=== PATIENT | male | born 1965 | race Caucasian/White ===

== ENCOUNTER 2017-04-05 16:26 | Emergency (ER) | payer SELFPAY ==
[~2017-04-05] VITALS: Ht 175.3 cm; Wt 68.0 kg
[~2017-04-05 16:26] MED LIST: BENZ1 PO; DIVA250T PO; GABA100C4 PO; RISP1 PO
[2017-04-05 16:34] VITALS: BP 118/80; PULSE 86; RESP 15; TEMP 98.7; O2SAT 99
[2017-04-05] MEDS ORDERED: GABA300C5 PO (18:16)
[2017-04-05] MEDS ORDERED: RISP1 PO (18:16)
[2017-04-05] MEDS ORDERED: BENZ0.5T PO (18:16)
--- NOTE | 2017-04-05 18:17 | PD ---
HPI . Anxiety Chief Complaint: Psychiatric Symptoms Time Seen by Provider: 17:19 Travel History International Travel<30 days: No Contact w/Intl Traveler<30days: No Traveled to known affect area: No History of Present Illness HPI A 51-year-old male with a history of psychosis and substance abuse comes in complaining of several psychiatric symptoms. The patient reports that he has been strung out on benzos and really needs to speak to someone. Patient denies any suicidal or homicidal ideation. PFSH Past Medical History Hx Anticoagulant Therapy: No Anxiety: Yes (AND PANIC) Depression: Yes Chemotherapy: No Cerebrovascular Accident: No Diminished Hearing: No Endocrine: No Genitourinary: No Immune Disorder: No Reproductive: No Respiratory: No Immunizations Current: Yes Past Surgical History Appendectomy: Yes Social History Alcohol Use: No Tobacco Use: Yes (10/07 PPD) Substance Use: Yes (few weeks ago did coccaine and meth. ) Allergies-Medications (Allergen,Severity, Reaction): Coded Allergies: Benadryl (Verified Adverse Reaction, Severe, Psychosis, 04/05/17) Reported Meds & Prescriptions Reported Meds & Active Scripts Active Benztropine Mesylate 1 Mg Tab 1 Mg PO BID [address] (Divalproex Sodium) 250 Mg Tab 500 Mg PO Q12HR 15 Days Gabapentin 100 Mg Cap 300 Mg PO TID 15 Days Risperdal (Risperidone) 1 Mg Tab 1 Mg PO DIRECTED 15 Days 2mg PO qAM, 1mg PO qNoon, 2mg PO qHS. Reported Benztropine (Benztropine Mesylate) 0.5 Mg Tab 1 Mg PO HS Gabapentin 300 Mg Cap 300 Mg PO BID Risperdal (Risperidone) 1 Mg Tab 1 Mg PO DAILY Review of Systems Psychiatric: Positive: Anxiety, Depression, Substance Abuse, No: Suicidal Ideations, Homicidal Ideation Physical Exam Narrative GENERAL: Awake and alert and in no acute distress. SKIN: Warm and dry. HEAD: Atraumatic. Normocephalic. EYES: Pupils equal and round. NECK: Trachea midline. CARDIOVASCULAR: Regular rate and rhythm. RESPIRATORY: No accessory muscle use. MUSCULOSKELETAL: No obvious deformities. No edema. NEUROLOGICAL: Awake and alert. No obvious cranial nerve deficits. Motor grossly within normal limits. Normal speech. PSYCHIATRIC: Psychomotor agitation. Affect and mood were flat. Insight and judgment good. Data Data Last Documented VS Vital Signs Date Time Temp Pulse Resp B/P Pulse Ox O2 Delivery O2 Flow Rate FiO2 04/05/17 16:34 98.7 86 15 118/80 99 Orders Complete Blood Count With Diff (04/05/17 17:21) Comprehensive Metabolic Panel (04/05/17 17:21) Psych Screen (04/05/17 17:21) Drug Screen, Random Urine (04/05/17 17:21) Alcohol (Ethanol) (04/05/17 17:21) Labs Laboratory Tests Test 04/05/17 17:40 White Blood Count 7.1 TH/MM3 Red Blood Count 4.81 MIL/MM3 Hemoglobin 14.4 GM/DL Hematocrit 43.4 % Mean Corpuscular Volume 90.3 FL Mean Corpuscular Hemoglobin 29.9 PG Mean Corpuscular Hemoglobin 33.2 % Concent Red Cell Distribution Width 12.5 % Platelet Count 216 TH/MM3 Mean Platelet Volume 8.7 FL Neutrophils (%) (Auto) 71.3 % Lymphocytes (%) (Auto) 18.3 % Monocytes (%) (Auto) 7.3 % Eosinophils (%) (Auto) 2.4 % Basophils (%) (Auto) 0.7 % Neutrophils # (Auto) 5.0 TH/MM3 Lymphocytes # (Auto) 1.3 TH/MM3 Monocytes # (Auto) 0.5 TH/MM3 Eosinophils # (Auto) 0.2 TH/MM3 Basophils # (Auto) 0.0 TH/MM3 CBC Comment DIFF FINAL Differential Comment Sodium Level 141 MEQ/L Potassium Level 4.1 MEQ/L Chloride Level 107 MEQ/L Carbon Dioxide Level 28.1 MEQ/L Anion Gap 6 MEQ/L Blood Urea Nitrogen 13 MG/DL Creatinine 1.10 MG/DL Estimat Glomerular Filtration 71 ML/MIN Rate Random Glucose 88 MG/DL Calcium Level 9.0 MG/DL Total Bilirubin 0.7 MG/DL Aspartate Amino Transf 12 U/L (AST/SGOT) Alanine Aminotransferase 20 U/L (ALT/SGPT) Alkaline Phosphatase 70 U/L Total Protein 7.2 GM/DL Albumin 4.1 GM/DL Urine Opiates Screen NEG Urine Barbiturates Screen NEG Urine Amphetamines Screen NEG Urine Benzodiazepines Screen POS Urine Cocaine Screen POS Urine Cannabinoids Screen NEG Ethyl Alcohol Level LESS THAN 3 MG/DL MDM Medical Decision Making Medical Screen Exam Complete: Yes Emergency Medical Condition: Yes Differential Diagnosis substance abuse, acute psychosis, depression, anxiety, schizophrenia Narrative Course Patient presents with a chief complaint of anxiety and depression related to substance abuse. We will do a medical clearance exam followed by referral for a psych screening exam. CBC & BMP Diagram 04/05/17 17:40 Toxicology is positive for benzodiazepines and cocaine. This patient is medically clear for psychiatric evaluation. Diagnosis Primary Impression: Cocaine use disorder, moderate, dependence Additional Impression: Benzodiazepine dependence Condition: Stable Yazmin Alcocer MD Apr 05, 2017 18:17
[2017-04-05 18:25] LABS: BASOPHIL % 0.7 % (0.0-2.0); EOSINOPHIL # 0.2 TH/MM3 (0-0.4); EOSINOPHIL % 2.4 % (0.0-4.0); HEMATOCRIT 43.4 % (39.0-51.0); HEMO FLAGS DIFF FINAL; LYMPH % 18.3 % (9.0-44.0); LYMPHOCYTE # 1.3 TH/MM3 (1.0-4.8); MEAN CELL VOLUME 90.3 FL (80.0-100.0); MEAN CORPUSCULAR HEMOGLOBIN 29.9 PG (27.0-34.0); MEAN CORPUSCULAR HGB CONC 33.2 % (32.0-36.0); MONO % 7.3 % (0.0-8.0); NEUT % 71.3 % (16.0-70.0); PLATELET COUNT 216 TH/MM3 (150-450); RED BLOOD COUNT 4.81 MIL/MM3 (4.50-5.90); RED CELL DISTRIBUTION WIDTH 12.5 % (11.6-17.2); WHITE BLOOD COUNT 7.1 TH/MM3 (4.0-11.0)
[2017-04-05 18:29] LABS: AMPHETAMINE, URINE NEG (NEG); BARBITURATES, URINE NEG (NEG); COCAINE, URINE POS (NEG)
[2017-04-05 18:41] LABS: ALT (GPT) 20 U/L (12-78); ANION GAP 6 MEQ/L (5-15); AST (GOT) 12 U/L (15-37); BICARBONATE 28.1 MEQ/L (21.0-32.0); BLOOD UREA NITROGEN 13 MG/DL (7-18); CHLORIDE 107 MEQ/L (98-107); GLOMERULAR FILTRATION RATE 71 ML/MIN (>89); POTASSIUM 4.1 MEQ/L (3.5-5.1); SODIUM (NA) 141 MEQ/L (136-145)
[2017-04-05 18:42] LABS: ALKALINE PHOSPHATASE 70 U/L (45-117); TOTAL BILIRUBIN ADULT 0.7 MG/DL (0.2-1.0)
[2017-04-05] MEDS ORDERED: LORazepam 2 MG TAB PO ONE (19:45)
[2017-04-05 19:58] VITALS: BP 134/84; PULSE 84; RESP 18; TEMP 98; O2SAT 95
[2017-04-05 22:00] VITALS: BP 126/76; PULSE 89; RESP 18; TEMP 98.8; O2SAT 95
[2017-04-05] MEDS ORDERED: IBUPROFEN 800 MG TAB PO PRN (22:00)
[2017-04-05] MEDS: risperiDONE 1 MG TAB PO SCH (22:00)
[2017-04-05] MEDS: BENZTROPINE MESYLATE 2 MG TAB PO SCH (22:00)
[2017-04-06 02:06] VITALS: BP 132/78; PULSE 70; RESP 18; TEMP 98.7; O2SAT 97
[2017-04-06] MEDS ORDERED: ACETAMINOPHEN 325 MG TAB PO ONE (05:00)
[2017-04-06 05:59] VITALS: BP 100/64; PULSE 66; RESP 18; TEMP 98; O2SAT 97
[2017-04-06] MEDS ORDERED: risperiDONE 1 MG TAB PO SCH (09:00)
[2017-04-06] MEDS: risperiDONE 1 MG TAB PO SCH (09:52)
[2017-04-06] MEDS: BENZTROPINE MESYLATE 2 MG TAB PO SCH (09:52)
[2017-04-06 09:59] VITALS: BP 100/64; PULSE 66; RESP 18; O2SAT 97
== END 2017-04-06 11:36 | disposition home or self-care (01) ==
LOC: NEPD 16:26 → NEPJ 04-06 11:36
DX: F41.8 Other specified anxiety disorders (principal); F17.210 Nicotine dependence, cigarettes, uncomplicated; F14.20 Cocaine dependence, uncomplicated; F13.20 Sedative, hypnotic or anxiolytic dependence, uncomplicated
CPT/HCPCS: 80053; 80307; 85025; 99283